=== PATIENT | male | born 1980 | race Caucasian/White ===

== ENCOUNTER 2017-11-09 20:49 | Emergency (ER) | payer OTHER ==
[~2017-11-09] VITALS: Ht 190.5 cm; Wt 97.5 kg
[~2017-11-09 20:49] MED LIST: IBUPROFEN 600600 M1 PO; NORCO 5-325 TA1 EACH PO
[2017-11-09] MEDS ORDERED: IBUPROFEN 600600 M1 PO (22:33)
[2017-11-09] MEDS ORDERED: NORCO 5-325 TA1 EACH PO (22:33)
== END 2017-11-09 23:04 | disposition home or self-care (01) ==
LOC: ER 20:49
DX: S63.285A Dislocation of proximal interphalangeal joint of left ring finger, initial encounter (principal); Z90.49 Acquired absence of other specified parts of digestive tract; Z88.1 Allergy status to other antibiotic agents; X58.XXXA Exposure to other specified factors, initial encounter; Y93.66 Activity, soccer; Y92.89 Other specified places as the place of occurrence of the external cause; Y99.8 Other external cause status